=== PATIENT | male | born 1945 | race Caucasian/White ===

== ENCOUNTER → 2016-08-03 | Outpatient (CLI) | payer MEDICARE, OTHER ==
[~2016-08-03] MED LIST: ALPRAZOLAM0.5 MG PO; AMBIEN10 MG PO; EFFEXOR XR75 MG PO; LEVAQUIN750 MG PO; LEXAPRO10 MG PO; LORCET HD 10-31 EACH PO; NEURONTIN 300300 MG PO; SINGULAIR10 MG PO; SOMA350 MG PO; XARELTO10 MG PO; ZOLOFT100 MG PO; ZYRTEC10 M3 PO
== END ==
LOC: CT 14:30
DX: C91.12 Chronic lymphocytic leukemia of B-cell type in relapse (principal); D69.6 Thrombocytopenia, unspecified; R16.1 Splenomegaly, not elsewhere classified; R53.81 Other malaise; E53.8 Deficiency of other specified B group vitamins; D68.9 Coagulation defect, unspecified; J01.90 Acute sinusitis, unspecified; J32.9 Chronic sinusitis, unspecified; Z01.89 Encounter for other specified special examinations
CPT/HCPCS: 70470; J1642; Q9966